=== PATIENT | female | born 1965 | race Caucasian/White ===

== ENCOUNTER 2020-01-01 13:30 | Outpatient (CLI) | payer BC, SELFPAY ==
--- NOTE | 2020-01-07 16:16 | WPDPFTINT ---
PFT Interpretation PFT Interpretation: DOS:01/01/2020 REQUESTING: ABIGAIL Noland REASON FOR TESTING: asthma PULMONARY FUNCTION TESTS Results are reliable. Spirometry: FEV1 132%, FVC 119%, supranormal. FEV1% is normal. LLB74-53% is 139%. No change with bronchodilator. Lung volumes: TLC 119%, normal. VC 122%, normal. RV 109%, normal. No air trapping. Increased airway resistance, 151%. Diffusion: DLCO 108%, normal. Flow volume loop: Normal. IMPRESSION: Normal study. Reba Mccurdy MD
== END 2020-01-01 13:31 | disposition home or self-care (01) ==
LOC: ANHPFT 13:31
PROVIDERS: PCP Family Medicine; Visit Provider Nurse Practitioner Family
DX: J45.909 Unspecified asthma, uncomplicated (principal)
CPT/HCPCS: 94060; 94726; 94729

== ENCOUNTER 2020-04-27 07:35 | Outpatient (CLI) | payer BC, SELFPAY ==
--- NOTE | 2020-04-27 07:55 | ECHO_ITS ---
Patient Info Name: Samia Jo Age: 54 years : 1965 Gender: Female Ht: 64 in Wt: 120 lbs BSA: 1.57 m2 HR: 55 bpm BP: 120 / 77 mmHg Heart Rhythm: Sinus Rhythm Technical Quality: Good Exam Date: 04/27/2020 8:18 AM Exam Location: [facility] Patient Status: Outpatient Admit Date: 04/27/2020 Staff Ordering Physician: Arnulfo Solorio MD Photographer Portrait: Chidi Mccormack RDCS, RT Attending Provider: Arnulfo Solorio MD Referring Physician: Osmin RAMOS; Exam Type: CA echo doppler color flow Study Info Indications R06.00 - Dyspnea, unspecified Complete two-dimensional, color flow and Doppler transthoracic echocardiogram is performed. Strain analysis performed. Summary 1. Complete two-dimensional, color flow and Doppler transthoracic echocardiogram is performed. 2. Strain analysis performed. 3. Left ventricular chamber dimension is normal. 4. Left ventricular systolic function is mildly reduced, estimated at 50-55%. 5. There is no increased left ventricular wall thickness. 6. The left ventricular diastolic function is normal. 7. Global longitudinal strain is normal at -19 %. 8. Left atrial chamber dimension is mildly enlarged. 9. There is mild mitral valve regurgitation. 10. There is mild tricuspid valve regurgitation. 11. There is mild pulmonic regurgitation. Left Ventricle Left ventricular chamber dimension is normal. Left ventricular systolic function is mildly reduced, estimated at 50-55%. There is no increased left ventricular wall thickness. The left ventricular diastolic function is normal. Global longitudinal strain is normal at -19 %. Right Ventricle Right ventricular chamber dimension is normal. Right ventricular systolic function is normal. Left Atria Left atrial chamber dimension is mildly enlarged. Right Atria Right atrial chamber dimension is normal. Atrial Septum Intact interatrial septum visualized by color flow imaging. Aortic Valve The aortic valve is trileaflet. There is mild aortic valve sclerosis. There is no aortic valve stenosis. There is trace aortic valve regurgitation. Pulmonic Valve The pulmonic valve is normal. There is no pulmonic valve stenosis. There is mild pulmonic regurgitation. Mitral Valve The mitral valve has normal leaflets. There is no mitral valve stenosis. There is mild mitral valve regurgitation. Tricuspid Valve The tricuspid valve leaflets are normal. There is no significant tricuspid valve stenosis. There is mild tricuspid valve regurgitation. Pericardium/Pleural The pericardium appears normal. There is trivial pericardial effusion. Inferior Vena Cava Normal inferior vena cava with <50% collapse upon inspiration consistent with elevated right atrial pressure, 10 mmHg. Aorta The aortic root size at the sinus of Valsalva is normal. The prox ascending aorta size is normal. Left Ventricular Outflow Tract Name Value Normal LVOT 2D LVOT Diameter 2.0 cm LVOT Doppler LVOT Peak Gradient 5 mmHg LVOT Mean Gradient 3 mmHg L
== END 2020-04-27 07:36 | disposition home or self-care (01) ==
PROVIDERS: PCP Family Medicine; Visit Provider Internal Medicine Pulmonary Disease
DX: R06.02 Shortness of breath (principal)
CPT/HCPCS: 93306

== ENCOUNTER 2020-10-31 11:11 | Outpatient (CLI) | payer BC, SELFPAY ==
--- NOTE | ~2020-10-31 | US_ITS ---
EXAMINATION: US thyroid EXAM DATE: 10/31/2020 11:38 INDICATION: E89.0 - Postprocedural hypothyroidism . Iatrogenic hypothyroidism. Right thyroidectomy. TECHNIQUE: Multiple grayscale and Doppler images of the thyroid were obtained (by a technologist who performed the scan) and subsequently reviewed. Individual nodules and recommendations may be reporte d in accordance with TI-RADS system as designated by the 2017 ACR White Paper TI-RADS committee. Comp arison is made to prior examination from 04/26/2003. FINDINGS: The right thyroidectomy bed is unremarkable. The left thyroid lobe measures 5.3 x 1.3 x 2.0 cm, mildl y enlarged. Several small left thyroid lobe nodules, largest solid nodule category TR 4 measuring 5 m m diameter. IMPRESSION: 1. Mildly enlarged left thyroid lobe with subcentimeter nodules. 2. Unremarkable right thyroidectomy bed. Reviewed, dictated and finalized at location B.
== END 2020-10-31 11:12 | disposition home or self-care (01) ==
LOC: ANHIMG 11:13
PROVIDERS: PCP Family Medicine; Visit Provider Otolaryngology
DX: E89.0 Postprocedural hypothyroidism (principal)
CPT/HCPCS: 76536

== ENCOUNTER 2020-11-09 12:52 | Outpatient (CLI) | payer BC, SELFPAY | END 2020-11-09 12:53 | disposition home or self-care (01) | LOC: ANHAUDIO 12:55 | PROVIDERS: PCP Family Medicine; Visit Provider Otolaryngology | DX: H93.13 Tinnitus, bilateral (principal) | CPT/HCPCS: 92557; 92567 ==

== ENCOUNTER 2021-07-05 09:06 | Outpatient (CLI) | payer BC, SELFPAY ==
--- NOTE | ~2021-07-05 | DEXA_ITS ---
Bone Density Report Name: MARGARITO LUA Age: 55 Sex: Female Ethnicity: White Date of : 1965 Indication: postmenopausal; screening for osteoporosis; height loss; Referring Provider: JAMIE GREENBERG Study: Bone densitometry was performed. Exam Date: July 05, 2021 Accession number: [id number] Bone Density: Region BMD T-score Z-score Classification AP Spine(L1-L4) 1.003 -0.4 0.7 Normal Femoral Neck (Left) 0.785 -0.6 0.5 Normal Total Hip (Left) 0.936 0.0 0.7 Normal Femoral Neck (Right) 0.767 -0.7 0.4 Normal Total Hip (Right) 0.933 -0.1 0.6 Normal Total Hip Mean 0.935 -0.1 0.7 Normal World Health Organization criteria for BMD impression classify patients as: Normal (T-score at or above -1.0), Osteopenia (T-score between -1.0 and -2.5), or Osteoporosis (T-score at or below -2.5). 10-year Fracture Risk: FRAX not reported because: All T-scores for Spine Total, Hip Total, Femoral Neck at or above -1.0 Clinical Information Provided by Patient: Has used the following medications: HRT (i.e. estrogen/hormone therapy), Vitamin D Patient maximum height was 64 Menopause Age: 54 Does not regularly consume dairy products Drinks caffeinated beverages Onset of menses at age 12 Number of children 2 Impression: The patient has normal bone mass. Discussion: BONE DENSITY IS ABOVE THE MINIMUM DESIRABLE LEVEL AT ALL SKELETAL SITES TESTED. This patient?s bone mineral density is above the minimum desirable level (T-score -1.0 or better) at all sites measured. The patient should follow a healthful lifestyle (good nutrition with adequate calcium and vitamin D, and appropriate weight-bearing exercise). Follow-Up: Consider repeating this study in 5 years or sooner if there is some new clinical indication. Reported by: [facility] on 07/05/2021 9:30:00 AM. Reviewed, dictated and finalized at location AArie RIVERO
--- NOTE | ~2021-07-05 | MM_ITS ---
EXAMINATION: MM screening jenaro BI w abbi HISTORY: Screening mammogram TECHNIQUE: Craniocaudal and mediolateral oblique 3-D tomosynthesis images were obtained and synthetic 2-D images were generated. CAD analysis was submitted and interpreted. COMPARISON: 11/15/2009 BREAST PARENCHYMAL COMPOSITION: The breasts are heterogeneously dense, which may obscure small masses . FINDINGS: There is no suspicious mass, calcification, or architectural distortion to suggest malignan cy in either breast. There has been no suspicious interval change. IMPRESSION: 1. No mammographic evidence of malignancy. 2. Recommend routine screening mammography in one year. BI-RADS Category 1: Negative Reviewed, dictated and finalized at location A.
== END 2021-07-05 09:07 | disposition home or self-care (01) ==
LOC: ANHIMG 09:07
PROVIDERS: PCP Family Medicine; Visit Provider Physician Assistant Medical
DX: Z12.31 Encounter for screening mammogram for malignant neoplasm of breast (principal); Z13.820 Encounter for screening for osteoporosis; Z78.0 Asymptomatic menopausal state
CPT/HCPCS: 77063; 77067; 77080

== ENCOUNTER 2023-06-13 10:09 | Outpatient (CLI) | payer BC, SELFPAY ==
--- NOTE | ~2023-06-13 | MMUS_ITS ---
EXAMINATION: MM diagnostic jenaro BI w abbi, US breast BI complete HISTORY: Left breast lump TECHNIQUE: ML, MLO and CC full field spot 3-D tomosynthesis images of both breasts were performed and synthetic 2-D images were generated. CAD analysis was submitted and interpreted. High resolution com plete bilateral breast ultrasound examination including all 4 quadrants and subareolar area in each b reast was performed. COMPARISON: 07/05/2021 bilateral screening mammogram BREAST PARENCHYMAL COMPOSITION: The breasts are heterogeneously dense, which may obscure small masses . FINDINGS: MAMMOGRAPHIC FINDINGS: In the posterior aspect of the mid outer left breast there is a new approximately 1.7 cm irregular as ymmetric density with suggestion of associated architectural distortion, not present on 07/05/2021. No other suspicious mass, architectural distortion, malignant calcification, skin thickening or retra ction is detected.. ULTRASOUND: Right breast: 3:00 3 cm from nipple: Septated 2 x 4.6 x 6 point millimeters cyst 10:00 2 cm from nipple: 2 x 4 mm cyst Left breast: 3:00 3 cm from nipple: Very irregular heterogeneous hypoechoic mass with abnormal vascularity, corres ponding to the mammographic finding, very suspicious for malignancy. 3:00 4 cm from nipple: 7 x 3.3 x 4.8 mm irregular hypoechoic mass with some internal vascularity, silvino picious for malignancy 4:00 2 cm from nipple: Under the irregular hypoechoic mass measuring 4.5 x 3.4 x 3.5 mm is noted, als o suspicious for malignancy. IMPRESSION: 1. 3 suspicious irregular masses in left breast at 3:00 3 cm from nipple, 3:00 4 cm from nipple and 4 :00 2 cm from nipple 2. Ultrasound-guided biopsy of all 3 masses is recommended. BI-RADS category 4, suspicious findings. Reviewed, dictated and finalized at location A. IMPRESSION: 1. 3 suspicious irregular masses in left breast at 3:00 3 cm from nipple, 3:00 4 cm from nipple and 4:00 2 cm from nipple 2. Ultrasound-guided biopsy of all 3 masses is recommended. BI-RADS category 4, suspicious findings.
== END 2023-06-13 10:10 | disposition home or self-care (01) ==
PROVIDERS: PCP Family Medicine; Visit Provider Nurse Practitioner Obstetrics & Gynecology
DX: R92.8 Other abnormal and inconclusive findings on diagnostic imaging of breast (principal)
CPT/HCPCS: 76641; 77062; 77066; G0279